=== PATIENT | female | born 1995 | race Two or more races ===

== ENCOUNTER 2024-12-31 17:53 | Emergency (ER) | payer OTHER ==
[~2024-12-31] VITALS: Ht 167.6 cm; Wt 67.6 kg
[2024-12-31] MEDS ORDERED: SPRINTEC 28 DA1 EAC1 PO (18:32)
[2024-12-31] MEDS ORDERED: BUTALB/ACETAMINOPHEN/CAFFEINE 1 TAB TABLET PO ONE (21:00)
[2024-12-31] MEDS ORDERED: TRAMADOL HCL 50 MG TABLET PO ONE (21:15)
[2024-12-31 21:22] LABS: BASO % 0.6 % (0.1-1.2); EOS # 0.08 (0.04-0.54); EOS % 1.1 % (0.7-7.0); LYMPH # 3.55 (1.18-3.74); LYMPH % 48.8 % (19.3-53.1); MEAN PLATELET VOLUME 10.10 fl (9.4-12.4); MONO # 0.38 (0.24-0.82); MONO % 5.2 % (4.7-12.5); NEUT # 3.20 (1.56-6.13); NEUT % 44.0 % (34.0-71.1); RED CELL DISTRIBUTION WIDTH 12.3 % (11.6-14.4)
[2024-12-31] MEDS ORDERED: ORPHENADRINE CITRATE 100 MG TABLET PO ONE (22:15)
== END 2025-01-01 00:43 | disposition home or self-care (01) ==
LOC: ER 17:53
PROVIDERS: Emergency Medicine
DX: R51.9 Headache, unspecified (principal); Z88.0 Allergy status to penicillin; Z91.013 Allergy to seafood